=== PATIENT | female | born 1985 | race Asian ===

== ENCOUNTER 2018-05-10 06:20 | Day surgery (SDC) | payer OTHER ==
[2018-05-09 10:42] VITALS: BMI 27.2
[~2018-05-10] VITALS: Ht 162.6 cm; Wt 70.4 kg
[2018-05-10] VITALS (19 sets, daily range): BP systolic 121–140; BP diastolic 60–92; PULSE 76–104; RESP 12–23; Ht 162.6 cm; Wt 70.4 kg
[2018-05-10] MEDS ORDERED: MONT10TA24 PO (07:52)
--- NOTE | 2018-05-10 08:14 | PREOPHP ---
DATE OF ADMISSION: 05/10/2018 HISTORY OF PRESENT ILLNESS: This is a 32-year-old lady, 1, para 0. Her last normal menstrua l period was a few days prior to admission. She was admitted for D and C, hysteroscopy, laparoscopy, possible laparotomy. This patient complains of very heavy menstrual periods associated with blood c lots and also have severe pain with her periods for many months and getting worse up to the time of a dmission. She says she has lower abdominal pains and low back pains as well. So she was admitted fo r D and C, hysteroscopy, laparoscopy, possible laparotomy. The procedures were explained to the ct ent and she understood everything totally. The risks, benefits and alternatives were discussed with her as well. PAST PERSONAL HISTORY: No history of diabetes, TB, asthma. ALLERGIES: NO ALLERGIES. SOCIAL HISTORY: Patient does not smoke. She does not drink. She does not take any drugs. GYNECOLOGIC HISTORY: She had menarche at the age of 14, every 28 days interval, 3 to 4 days duration , and moderate in amount. FAMILY HISTORY: Mother has heart disease and hypertension. Sister has diabetes. PAST SURGICAL HISTORY: Left knee surgery twice. REVIEW OF SYSTEMS: CARDIOVASCULAR: No chest pains. RESPIRATORY: No cough. GASTROINTESTINAL: No diarrhea, no vomiting. GENITOURINARY: No dysuria. PHYSICAL EXAMINATION: GENERAL: Reveals a conscious, coherent lady and in no acute distress. VITAL SIGNS: Her blood pressure 120/80, pulse rate 80 per minute, respirations 16 per minute. BREASTS, HEART AND LUNGS: Within normal limits. ABDOMEN: Soft. No organomegaly. PELVIC: Revealed the cervix to be firm, uterus about 6 weeks size, and adnexa were negative for mass es. RECTAL: Confirmed the pelvic findings. EXTREMITIES: No pedal edema. ADMITTING DIAGNOSIS: Severe dysmenorrhea, chronic pelvic pain, menorrhagia and a small fibroid by sangeeta bledsoe to rule out endometriosis. PLAN: The patient was planned to have the above procedure. Dictated By: USHA KELLY/PREETI Conf#: [id number] DID#: [id number]
--- NOTE | 2018-05-10 09:13 | PREAC ---
Date/Time of Note Date/Time of Note DATE: 05/10/18 TIME: 09:13 Anesthesia Eval and Record Evaluation Time Pre-Procedure Interview DATE: 05/10/18 TIME: 09:13 Age 32 Sex female NPO: 8 hrs Preoperative diagnosis Pelvic pain, menorrhagia Planned procedure Diagnostic laparoscopy, D & C Past Medical History Past Medical History: None Surgery & Anesthesia Issues No known issue Meds Anticoagulation: No Beta Fanny within 24 hr: No Reason Beta Fanny not given: Pt. not on B-Fanny Reported Medications Montelukast Sodium* (Montelukast Sodium*) 10 Mg Tablet, 10 MG PO QHS, #30 TAB 05/10/18 Meds reviewed: Yes Allergies Coded Allergies: No Known Allergy (Unverified , 05/09/18) Allergies Reviewed: Yes Labs/Studies Labs Reviewed: Reviewed by anesthesiologist Blood Bank Test 05/09/18 10:41 Antibody Screen NEGATIVE Blood Type O POSITIVE test: Negative Pre-procedure Exam Airway: Adequate mouth opening Mallampati: Mallampati I Teeth: Normal Lung: Normal Heart: Normal ASA Physical Status ASA physical status: 1 Emergency: None Planned Anesthetic General/MAC: ETT Planned Pain Management Parenteral pain med Pre-operative Attestations Prior to commencing anesthesia and surgery, the patient was re-evaluated, there was verification of: *The patient's identity *The results of appropriate recent lab work and preoperative vital signs *The above evaluation not changing prior to induction *Anesthetic plan, risk benefits, alternative and complications discussed with patient/family; questions answered; patient/family understands, accepts and wish es to proceed. MARIA A KEENAN MD May 10, 2018 09:13
[2018-05-10] MEDS ORDERED: NEOSTIGMINE 3 MG/3 ML SYRINGE ONE ×2 (09:26→10:09)
[2018-05-10] MEDS ORDERED: SUCCINYLCHOLINE CHLORIDE 100 MG/5 ML SYG IV ONE (09:26)
[2018-05-10] MEDS ORDERED: LIDOCAINE 2% (SDV) 5 ML INJ ONE (09:26)
[2018-05-10] MEDS ORDERED: MEPERIDINE 100 MG INJ ONE (09:26)
[2018-05-10] MEDS ORDERED: GLYCOPYRROLATE 0.4 MG INJ ONE ×2 (09:26→10:09)
[2018-05-10] MEDS ORDERED: PROPOFOL 20 ML ONE (09:26)
[2018-05-10] MEDS ORDERED: ROCURONIUM 50 MG INJ ONE (09:26)
[2018-05-10] MEDS ORDERED: MIDAZOLAM 1 MG/ML 2 ML INJ IV PRN (09:30)
[2018-05-10] MEDS ORDERED: HYDROmorphONE 1 MG/5 ML IV SYRINGE IV PRN ×3 (09:30)
[2018-05-10] MEDS ORDERED: FENTAnyl 50 MCG/ML VIAL IV PRN ×3 (09:30)
[2018-05-10] MEDS ORDERED: MEPERIDINE 25 MG INJ IV PRN (09:30)
[2018-05-10] MEDS ORDERED: METOCLOPRAMIDE 10 MG INJ IV PRN (09:30)
[2018-05-10] MEDS ORDERED: OXYCODONE/ACETAMINOPHEN (5/325) TAB PO PRN ×2 (09:30)
[2018-05-10] MEDS ORDERED: ONDANSETRON 4 MG INJ IV PRN (09:30)
[2018-05-10] MEDS ORDERED: DIPHENHYDRAMINE 50 MG INJ IV PRN (09:30)
[2018-05-10] MEDS ORDERED: CEFAZOLIN 1 GM INJ ONE (09:50)
[2018-05-10] MEDS ORDERED: ONDANSETRON 4 MG INJ ONE (09:50)
[2018-05-10] MEDS ORDERED: METOCLOPRAMIDE 10 MG INJ ONE (09:50)
--- NOTE | 2018-05-10 10:12 | SIPON ---
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
[2018-05-10] MEDS ORDERED: ACETAMINOPHEN 325 MG TAB PO PRN (10:30)
--- NOTE | 2018-05-10 11:17 | PAC ---
Date/Time of Note Date/Time of Note DATE: 05/10/18 TIME: 11:16 Post-Anesthesia Notes Post-Anesthesia Note Last documented vital signs Vital Signs Date Temp Pulse Resp B/P (MAP) Pulse Ox O2 O2 Flow FiO2 Time Delivery Rate 05/10/18 84 19 121/83 97 Room Air 10:38 (96) 05/10/18 98.2 10:18 Activity: WNL Respiratory function: WNL Cardiovascular function: WNL Mental status: Baseline Pain reasonably controlled: Yes Hydration appropriate: Yes Nausea/Vomiting absent: Yes MARIA A KEENAN MD May 10, 2018 11:17
--- NOTE | 2018-05-12 13:05 | OPR ---
DATE OF OPERATION: 05/10/2018 PREOPERATIVE DIAGNOSES: 1. Chronic pelvic pain. 2. Menorrhagia, dysmenorrhea, rule out ovarian cyst. POSTOPERATIVE DIAGNOSES: 1. Chronic pelvic pain. 2. Menorrhagia, dysmenorrhea, rule out ovarian cyst. 3. Moderate endometriosis. SURGEON: Ayana Seo MD PROPERTY INVESTOR: Emily peralta. ANESTHESIA: General. OPERATION PERFORMED: D and C, hysteroscopy, and laparoscopy. OPERATIVE TECHNIQUE: Under general anesthesia, the patient was prepped and draped in the usual fashi on for vaginal and abdominal surgery. Pelvic exam under anesthesia revealed the cervix to be firm, u terus of normal size, and adnexa were negative for masses. Then, the heavyweight vaginal retractor w as put in place and the anterior lip of the cervix was grasped with an Allis clamp. Endocervical dil atation up to Hegar 6 was proceeded. Uterus was sounded to about 3 inches. Then the hysteroscope wa s inserted inside the uterine cavity and connected with the light source. There were no polyps. The uterus was distended with normal saline. There were no polyps or fibroids seen. Endocervical curet tage was done and a small amount of tissue was obtained. Endometrial curettage was done and a small amount of tissue was obtained. Then the HUMI catheter was inserted inside the uterine cavity. Then, the Clarke catheter was put in place. Then, laparoscopy was proceeded. Two towel clips were placed just above the umbilicus and the Veress needle was inserted through the umbilicus. About 3 liters of carbon dioxide was insufflated. The Veress needle was removed and a small incision above the umbili cus was performed. A 5 mm trocar was inserted. Then, the laparoscope was inserted under direct visi on, a 5 mm trocar was inserted above the symphysis pubis. Then the probe was inserted. The uterus w as noted to be of normal size. Both tubes and ovaries were identified, they were healthy looking. T here were a few endometriotic implants noted at both the right and left pelvic region. At the cul-de -sac there were endometriotic implants noted as well. There were no adhesions noted. Then, both tub es are identified. They were healthy looking. After checking for and then there were no adhesions n oted. After checking for any bleeders in which there were none, then after correct sponge count, nee dle count and instrument count as confirmed by the optometric tech and urology nurse, the abdomen was closed in the usual fashion using 0 Vicryl for the peritoneum, 0 Vicryl for the muscles, for the fascia 0 Vi cryl continuous stitch was used followed by few [id number] sutures for the subcutaneous tissue, it was closed with 3-0 Vicryl and consult done. After checking for the bleeders, in which there were none, then the trocar above the symphysis pubis was removed under direct vision, no bleeding was not ed. Then, the laparoscope was removed under direct vision, then the trocar above the umbilicus was r emoved and after allowing the air to escape from the pelvic cavity, the trocar was removed. Both inc isions were checked for any bleeders and there was no bleeding noted. Then, both incisions were clos ed with 3-0 Vicryl subcuticular suture was used. The patient tolerated the procedure well. Estimate d blood loss was minimal. Vital signs were stable during and after the procedure. Dictated By: AYANA KELLY/PREETI Conf#: [id number] DID#: [id number]
== END 2018-05-10 12:45 | disposition home or self-care (01) ==
LOC: SDS 06:20
PROVIDERS: ATTEND Obstetrics & Gynecology
DX: N72 Inflammatory disease of cervix uteri (principal); N80.9 Endometriosis, unspecified
CPT/HCPCS: 58558; 84702; 86850; 86900; 86901; 88305; J0690; J1170; J2175; J2405; J2710; J2765; J3010